=== PATIENT | female | born 1965 ===

== ENCOUNTER 2018-01-24 15:15 | Emergency (ER) | payer OTHER ==
[2018-01-24 15:15] VITALS: BMI 24.4
[2018-01-24 15:41] VITALS: BP 132/74; PULSE 81; RESP 16; TEMP 98.3; O2SAT 99
--- NOTE | 2018-01-24 16:10 | RAD ---
PROCEDURE: Radiographs of the Lumbar Spine. HISTORY: low back pain COMPARISON: No prior. FINDINGS: BONES: Normal alignment. Grade 1 anterolisthesis of L4 on L5. No fracture. DISC SPACES: Mild multilevel disc space narrowing with endplate changes. OTHER FINDINGS: None. IMPRESSION: No acute fracture. Multilevel degenerative changes. Grade 1 anterolisthesis of L4 on L5.
--- NOTE | 2018-01-24 16:18 | C.PDOC ---
History Of Present Illness 52 year old female presents to the ED for evaluation of left-sided back pain that has been radiating down her left leg for over one month. Patient reports experiencing similar symptoms in the past and reports receiving "injections." Patient notes she works at a [employer] and is often on her feet all day. She denies known trauma, urinary/bowel incontinence, saddle anesthesia, extremity numbness/weakness. Time Seen by Provider: 01/24/18 15:42 Chief Complaint (Nursing): Lower Extremity Problem/Injury History Per: Patient History/Exam Limitations: no limitations Onset/Duration Of Symptoms: Other (1 month ) Current Symptoms Are (Timing): Still Present Quality Of Discomfort: "Pain" Previous Symptoms: Back Pain Associated Symptoms: denies: Incontinence, New Weakness, New Numbness Additional History Per: Patient Past Medical History Reviewed: Historical Data, Nursing Documentation, Vital Signs Vital Signs: Last Vital Signs Temp 98.3 F 01/24/18 15:38 Pulse 81 01/24/18 15:38 Resp 16 01/24/18 15:38 BP 132/74 01/24/18 15:38 Pulse Ox 99 01/24/18 16:27 - Medical History PMH: No Chronic Diseases Surgical History: No Surg Hx Family History: States: Unknown Family Hx - Social History Hx Alcohol Use: No Hx Substance Use: No - Immunization History Hx Tetanus Toxoid Vaccination: No Hx Influenza Vaccination: No Hx Pneumococcal Vaccination: No Review Of Systems Genitourinary: Negative for: Incontinence Musculoskeletal: Positive for: Back Pain (left-sided), Leg Pain (left) Neurological: Negative for: Weakness, Numbness, Other (saddle anesthesia ) Physical Exam - Physical Exam Appears: Non-toxic, No Acute Distress Skin: Normal Color, Warm, Dry Head: Atraumatic, Normacephalic Eye(s): bilateral: Normal Inspection Oral Mucosa: Moist Neck: Supple Chest: Symmetrical, No Deformity, No Tenderness Cardiovascular: Rhythm Regular Respiratory: Normal Breath Sounds, No Rales, No Rhonchi, No Wheezing Back: Paraspinal Tenderness (left-sided, lumbar ) Extremity: Normal ROM, Capillary Refill (less than 2 seconds ) Neurological/Psych: Oriented x3, Normal Speech, Normal Cognition ED Course And Treatment O2 Sat by Pulse Oximetry: 99 (on RA) Pulse Ox Interpretation: Normal - Other Rad LS Spine XR X-Ray: Interpreted by Me, Viewed By Me, Read By Radiologist Interpretation: PROCEDURE: Radiographs of the Lumbar Spine. HISTORY: low back pain. COMPARISON: No prior. FINDINGS: BONES: Normal alignment. Grade 1 anterolisthesis of L4 on L5. No fracture. DISC SPACES: Mild multilevel disc space narrowing with endplate changes. OTHER FINDINGS: None. IMPRESSION: No acute fracture. Multilevel degenerative changes. Grade 1 anterolisthesis of L4 on L5. Medical Decision Making Medical Decision Making: Impression: 52 year old female with left-sided back pain, left leg pain Plan: * LS Spine AP/LAT * Flexeril PO * Toradol IM * reassess and disposition Progress: LS Spine AP/LAT ordered and reviewed. Flexeril PO and Toradol IM administered. xr neg pain improved. no urinary changes no saddle anesthesia. pain >1 mo Disposition - Disposition Referrals: [facility] [Outside] [facility] [Outside] Son Serrano MD [Non-Staff] - Disposition: HOME/ ROUTINE Disposition Time: 04:00 Condition: GOOD Additional Instructions: please follow up withyour doctor. return to er with worsening symptoms or concerns. you may need furthertesting as an outpatient. please see specialist. you may need MRI. Prescriptions: Cyclobenzaprine [Cyclobenzaprine HCl] 10 mg PO DAILY PRN #10 tab PRN Reason: Muscle Spasm Naproxen 500 mg PO BID PRN #14 tablet PRN Reason: Pain, Mild (1-3) Instructions: Low Back Pain in Adults, Low Back Pain (DC) Forms: [employer] (Setswana) Print Language: FRENCH - Clinical Impression Clinical Impression: Low back strain - Scribe Statement The provider has reviewed the documentation as recorded by the Scribe (Lanette Dowell) Provider Attestation: All medical record entries made by the Scribe were at my direction and personally dictated by me. I have reviewed the chart and agree that the record accurately reflects my personal performance of the history, physical exam, medical decision making, and the department course for this patient. I have also personally directed, reviewed, and agree with the discharge instructions and disposition.
== END 2018-01-24 16:25 | disposition home or self-care (01) ==
LOC: C.ER 15:15
DX: S39.012A Strain of muscle, fascia and tendon of lower back, initial encounter (principal); X58.XXXA Exposure to other specified factors, initial encounter
CPT/HCPCS: 72100; 96372; 99283; J1885

== ENCOUNTER 2018-11-24 13:41 | Emergency (ER) | payer OTHER | END 2018-11-24 14:43 | disposition home or self-care (01) | LOC: C.ER 13:41 | DX: M54.30 Sciatica, unspecified side (principal) | CPT/HCPCS: 96372; 99283; J1885 ==